=== PATIENT | male | born 1975 | race Caucasian/White ===

== ENCOUNTER 2023-05-19 20:18 | Observation (INO) | payer BC, MEDICAID, SELFPAY ==
[2023-05-19 20:21] VITALS: BP 199/94; PULSE 87; RESP 12; TEMP 36.6; O2SAT 97; BMI 37.8
--- NOTE | 2023-05-19 20:21 | ECG_ITS ---
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 Measurements Intervals [place] Rate: 89 P: 67 VT: 150 QRS: -5 QRSD: 98 T: 52 QT: 337 QTc: 411 Interpretive Statements SINUS RHYTHM No previous ECG available for comparison Electronically Signed On 05-20-2023 11:09:12 CDT by Gwyn Mahajan M.D. [email or web address].[employer]/store/[id number] f
--- NOTE | 2023-05-19 20:22 | XRR_ITS ---
PROCEDURE INFORMATION: Exam: XR Chest Exam date and time: 05/19/2023 8:23 PM Age: 47 years old Clinical indication: Angina pectoris; Patient HX: Chest pain TECHNIQUE: Imaging protocol: Radiologic exam of the chest. Views: 1 view. COMPARISON: l spine FINDINGS: Lungs: No focal consolidation or other acute appearing pulmonary opacity. Pleural spaces: No pleural effusion or pneumothorax noted. Heart/Mediastinum: There is no cardiomegaly. Bones/joints: No acute osseous abnormality. XR/XR chest 1V portable [id number] IMPRESSION: No acute cardiopulmonary disease.
--- NOTE | 2023-05-19 20:23 | ECG_ITS ---
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 Measurements Intervals [place] Rate: 89 P: 67 [place]: 150 QRS: -5 QRSD: 98 T: 52 QT: 337 QTc: 411 Interpretive Statements SINUS RHYTHM No previous ECG available for comparison Electronically Signed On 05-20-2023 11:09:10 CDT by Gwyn Mahajan M.D. [id number] f
--- NOTE | 2023-05-19 20:31 | CTR_ITS ---
PROCEDURE INFORMATION: Exam: CTA Chest With Contrast Exam date and time: 05/19/2023 8:49 PM Age: 47 years old Clinical indication: Other: Hypertensive emergency; Chest pressure; Patient HX: C/O severe chest pain with hypertension; Additional info: Cxp, R/O dissection TECHNIQUE: Imaging protocol: Computed tomographic angiography of the chest with contrast. Exam focused on the arteries. 3D rendering (Not supervised by radiologist): MIP and/or 3D reconstructed images were created by the technologist. Radiation optimization: All CT scans at this facility use at least one of these dose optimization techniques: automated exposure control; mA and/or kV adjustment per patient size (includes targeted exams where dose is matched to clinical indication); or iterative reconstruction. Contrast material: OMNI 350; Contrast volume: 100 ml; Contrast route: INTRAVENOUS (IV); COMPARISON: CR (CHEST, ) 05/19/2023 8:23 PM RADIATION DOSE METRICS: Total DLP (mGy-cm): 1309.29 FINDINGS: Pulmonary arteries: No pulmonary emboli. Aorta: There is no aortic dissection. There is no aortic aneurysm. Lungs: No focal consolidation or other acute appearing pulmonary opacity. Pleural spaces: No pleural effusion or pneumothorax noted. Heart: There is no cardiomegaly. There is no pericardial effusion. Esophagus: The esophageal wall is thickened with a small hiatal hernia. Findings suggestive of reflux disease. Lymph nodes: There are no enlarged nodes. Bones/joints: No acute osseous abnormality. There is degenerative disease of the spine. Soft tissues: Unremarkable. CT/CT angio chest [id number] IMPRESSION: 1. No aortic dissection or aneurysm. 2. No pulmonary emboli. 3. Gastroesophageal reflux disease
--- NOTE | 2023-05-19 20:37 | PM.CONSULT ---
Providers/Reason For Consult Consulting Physician/Specialty*: Gwyn Mahajan MD/ Interventional Cardiology Reason for Consult*: Chest pain Requesting Physician: Dr Doll Attending Physician: Dr Muñiz History of Present Illness History of Present Illness 47-year-old man with no significant prior cardiac history presented to hospital with significant chest pain symptoms. According to patient he started having substernal chest pain with radiation to the left arm. EMS activated STEMI however on review of EKG he does not have ST elevation. Blood pressure was significantly elevated with systolic BP of 200 mmHg. Review of Systems Const: Denies: fever(s) or chills Card: Reports: chest pain Resp: Reports: dyspnea GI: Denies: abdominal pain Medications/Allergies Home Medications Medication Instructions Recorded Confirmed Last Taken Type No Known Home Medications 05/20/23 05/20/23 Unknown History Allergies Allergy/AdvReac Type Severity Reaction Status Date / Time No Known Allergies Allergy Verified 05/19/23 20:30 PFSH Acute PFSH: Medical History History of type 2 diabetes mellitus Surgical History History of hernia surgery Family History Mother Ovarian cancer Father CAD (coronary artery disease) Grandfather CAD (coronary artery disease) Grandmother CAD (coronary artery disease) Vitals/I&O/Wt Last Vital Signs Temp 97.9 F 05/19/23 20:21 Pulse 87 05/19/23 20:21 Resp 12 05/19/23 20:21 BP 199/94 05/19/23 20:21 Pulse Ox 97 05/19/23 20:21 O2 Del Method Room Air 05/19/23 20:21 Weight last 48 hrs Weight 303 lb Physical Exam Narrative: GENERAL: Patient is alert, awake and oriented x3. [] NECK: No jugular vein distension. [] HEENT: No cyanosis. No icterus. No pallor. [] HEART: Regular S1 and S2. Grade 2 systolic murmur LUNGS: Clear to auscultate bilaterally. [] CENTRAL NERVOUS SYSTEM: Grossly nonfocal. [] EXTREMITIES: Lower extremities with 1+ edema bilaterally. Data 05/19/23 20:32 05/19/23 21:20 A&P Assessment and plan (1) Chest pain: (2) Polycythemia: (3) Hypertensive urgency: Plan Patient has typical chest pain. However this is likely secondary to hypertensive urgency. No significant ischemic EKG changes. Trend troponins. Administer aspirin. Antihypertensive regimen. Order echocardiogram. Will recommend stress test if troponins are negative. Thank you for involving us with care of this patient. Will continue to follow. Please call with questions. Consult Attestations Medical Necessity Statement: Care expected to cross 2 midnights. Coding Level of Care Code Acute Code for [facility] Diagnoses Chest pain R07.9 Polycythemia D75.1 Hypertensive urgency I16.0
[2023-05-19 20:41] LABS: Basophils % 0.5 %; Eosinophils # 0.1 10^3/uL (0.0-0.8); Eosinophils % 1.5 %; Hematocrit 56.8 % (37-53); Lymphocytes # 1.9 10^3/uL (0.8-4.8); Lymphocytes % 24.5 %; Mean Corpuscular HGB Conc 33.1 g/dL (30-55); Mean Corpuscular Hemoglobin 29.1 pg (27-33); Mean Corpuscular Volume 88.1 fl (82-101); Mean Platelet Volume 11.1 fL (7.4-10.4); Monocytes # 0.8 10^3/uL (0.2-0.9); Monocytes % 9.8 %; Neutrophils # 4.88 10^3/uL (1.8-7.7); Neutrophils % 63.1 %; Nucleated Red Blood Cells % 0 %; Platelet Count 206 10^3/cmm (157-399); Red Blood Count 6.45 10^6/uL (3.85-5.65); Red Cell Distribution Width 14.4 % (12.1-15.1); White Blood Count 7.75 10^3/uL (3.29-11.43)
[2023-05-19] MEDS: nitroglycerin 1 gm/inch oint Pkt 1 INCH TOPICAL (20:42)
[2023-05-19] MEDS: iohexol 350 mg/mL 500 mL Btl (per mL) IV (20:50)
[2023-05-19 20:54] LABS: INR 1.05 (0.8-1.2)
[2023-05-19 20:55] LABS: Add Urine Microscopic? NO; Charge for UA Resulting for Rev
[2023-05-19 20:55] LABS: Partial Thromboplastin Time 25.7 SECONDS (23.9-36.7)
[2023-05-19 20:58] LABS: Bilirubin Urine Neg (Negative); Blood Urine Neg (Negative); Glucose Urine UA 4+ (Normal); Ketones Urine Negative (Negative); Leukocyte Esterase Urine Negative (Negative); Nitrate Urine Negative (Negative); Protein Urine Neg (Negative); Urine Appearance Clear (CLEAR); Urine Color Yellow (Yellow); Urobilinogen Urine Neg (Negative); pH Urine 7 (5-7)
[2023-05-19 21:00] LABS: Troponin(5th) Baseline 24 ng/L (0-15)
[2023-05-19 21:42] VITALS: BP 141/94; PULSE 84; RESP 18; O2SAT 95
[2023-05-19 21:56] LABS: Alanine Aminotransferase 54 U/L (0-41); Albumin Level 3.9 g/dL (3.5-5.2); Alkaline Phosphatase 58 U/L (40-130); Anion Gap 14.9 (5-19); Aspartate Amino Transferase 24 U/L (0-40); Blood Urea Nitrogen 15 mg/dL (6-20); Calcium 8.7 mg/dL (8.5-10.5); Carbon Dioxide 26 mmol/L (22-29); Chloride 101 mmol/L (98-107); Creatinine Clr Calc Pharmacy 151.6635; Globulin 2.8 g/dL (1.3-4.6); Glomerular Filtration Rate 90.4 mL/min (90-130); Glucose 279 mg/dL (65-115); NT Pro B Type Natriuretic Pept 41 pg/mL (0-125); Osmolality Calculated 297 mOsm/kg (285-295); Potassium 3.9 mmol/L (3.5-5.1); Sodium 138 mmol/L (136-145); Total Bilirubin 0.4 mg/dL (0.15-1.2); Total Protein 6.7 g/dL (6.6-8.7)
[2023-05-19 21:57] LABS: Creatine Phosphokinase 448 U/L (39-308)
--- NOTE | 2023-05-19 22:15 | ECG_ITS ---
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 Measurements Intervals [place] Rate: 87 P: 50 [place]: 145 QRS: 142 QRSD: 94 T: 26 QT: 338 QTc: 408 Interpretive Statements SINUS RHYTHM INDETERMINATE AXIS POSSIBLE ANTERIOR MYOCARDIAL INFARCTION , OF INDETERMINATE AGE [30 ms Q WAVE IN V3/V4, OR R < 0.2 mV IN V4] Compared to ECG 05/19/2023 20:21:50 Indeterminate axis now present Myocardial infarct finding now present Electronically Signed On 05-20-2023 11:17:31 CDT by Gwyn Mahajan M.D. [id number]
[2023-05-19 23:10] LABS: Troponin 5 2HR 23.26 ng/L (0-15)
[2023-05-19 23:11] LABS: Troponin 5 2HR Delta -0.74 ABS# (0-10)
[2023-05-19] MEDS: lidocaine 2% viscous 15 ML, aluminum-mag hydrox-simethicon 30 ML, sucralfate oral liq 1 GM PO (23:12)
--- NOTE | 2023-05-19 23:41 | W.ED.CHESTPA ---
HPI - Chest Pain General: Chief Complaint: Chest Pain Stated Complaint: CHEST PAIN Time Seen by Provider: 05/19/23 20:23 History of Present Illness: 47-year-old male presents to the emergency department via EMS personnel secondary to sudden onset substernal chest pain that radiated to his left shoulder. The patient states that he did feel like he had shortness of breath at the time of the onset of chest pain. Patient states that he does have a history of GERD and diabetes. He states he takes no medication as he is lost approximately 80 pounds. EMS personnel state that the patient had a significantly elevated blood pressure of over 200 systolic and called the ER and alerted for a STEMI. EMS personnel state they did give the patient cardiac dose aspirin as well as 2 sublingual nitro as which did not relieve his pain. The patient states that he continues to have sharp stabbing chest pain that is worse when he takes a deep breath. He states the pain is currently a 6 out of 10. He states he does have a headache that started after he was provided nitroglycerin in the ambulance. Patient states that in the past he has had elevated blood pressure but felt that since he lost a significant amount of weight that his blood pressure is under control although he states he does not check his blood pressure. 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 Associated symptoms: Reports dyspnea Review of Systems General: Reports: 10 or more systems reviewed and unremarkable except in HPI and below Card: Reports: chest pain Resp: Reports: dyspnea Physical Exam Narrative: EXAM NARRATIVE: Constitutional: the patient appears well nourished and with normal development. Vital signs reviewed as documented. Anxious appearing, no acute distress, HENMT: Normocephalic, atraumatic. External ears normal appearance without drainage. Nose without drainage, normal appearance. Mucus membranes moist. Neck is supple, No jugular venous distension, trachea is midline, no appreciable carotid bruits. No lymphadenopathy. No meningeal signs. Flexion, extension and lateral rotation is without pain. Eyes: Pupils are equal, round, reactive to light and accommodation. No scleral icterus. Extra-ocular movement are intact. Thorax is symmetrical and with equal rise and fall with respirations. Resp: Lungs are clear to auscultation. No wheezes, rales, crackles or ronchi at present. Cardio: Regular rate and rhythm. Positive S1, S2. No appreciable murmurs, rubs or gallops. GI: Abdominal exam reveals normal bowel sounds to all quadrants. No organomegaly. No obvious palpable masses noted. No hepatomegally appreciated. Soft, non-tender to palpation. Extremity: Extremities are non-edematous and both femoral and pedal pulses are 2+ and equal bilaterally. Moves all extremities well, sensation in all extremities. Neuro: Alert and oriented x4, person, place, time and situation. Cranial nerves II through XII are grossly intact, there is no focal neurological deficits that I can appreciate at present. Motor strength in the upper and lower extremities are equal and bilateral 5/5. Psych: Cooperative, normal thought process, appropriate judgment. Skin: No lesions, rashes. No gross abnormalities noted. Chronic venous stasis changes noted to the bilateral lower extremities. Back: Symmetrical, no obvious deformity, No CVA tenderness Course Vital Signs: Vital signs: Vital Signs Temperature 97.9 F 05/19/23 20:21 Pulse Rate 84 05/19/23 21:42 Respiratory Rate 18 05/19/23 21:42 Blood Pressure 141/94 05/19/23 21:42 Pulse Oximetry 95 05/19/23 21:42 Oxygen Delivery Me thod Room Air 05/19/23 20:21 MDM - Chest Pain Medical Decision Making Physical exam completed and documented a STEMI alert was initiated prior to arrival of the patient via [facility]. Review of the initial cardiac tracings from EMS did not demonstrate ST elevation or depression. Repeat twelve-lead EKG upon arrival here to the emergency department did not demonstrate ST elevation or depression. The patient was noted to have significantly elevated blood pressure and was provided antihypertensive medications. The on-call sports fitness and wellness director did evaluate the patient. The patient's blood pressure continued to improve after receiving hydralazine. CTA chest to evaluate for aortic dissection which was negative with the exception of findings consistent of GERD. I did contact the hospitalist physician for admission for additional evaluation treatment and care. Differential diagnosis includes atypical chest pain, NSTEMI, esophageal reflux, esophageal spasm, anxiety, pneumonia, aortic dissection, uncontrolled hypertension, Medical Records I reviewed the patient's medical records. Lab Data I reviewed the patient's lab results. 05/19/23 20:32 05/19/23 21:20 Radiology Impressions Chest X-Ray 05/19/23 20:22 IMPRESSION: No acute cardiopulmonary disease. Chest CTA 05/19/23 20:31 IMPRESSION: 1. No aortic dissection or aneurysm. 2. No pulmonary emboli. 3. Gastroesophageal reflux disease Laboratory Results WBC 7.75 10^3/uL (3.29-11.43) 05/19/23 20:32 RBC 6.45 10^6/uL (3.85-5.65) H 05/19/23 20:32 Hgb 18.80 g/dL (11.27-16.99) H 05/19/23 20:32 Hct 56.8 % (37-53) H 05/19/23 20:32 MCV 88.1 fl (82-101) 05/19/23 20:32 MCH 29.1 pg (27-33) 05/19/23 20:32 MCHC 33.1 g/dL (30-55) 05/19/23 20:32 RDW 14.4 % (12.1-15.1) 05/19/23 20:32 Plt Count 206 10^3/cmm (157-399) 05/19/23 20:32 MPV 11.1 fL (7.4-10.4) H 05/19/23 20:32 Neut % (Auto) 63.1 % 05/19/23 20:32 Lymph % (Auto) 24.5 % 05/19/23 20:32 [place] % (Auto) 9.8 % 05/19/23 20:32 Eos % (Auto) 1.5 % 05/19/23 20:32 Baso % (Auto) 0.5 % 05/19/23 20:32 Neut # (Auto) 4.88 10^3/uL (1.8-7.7) 05/19/23 20:32 Lymph # (Auto) 1.9 10^3/uL (0.8-4.8) 05/19/23 20:32 [place] # (Auto) 0.8 10^3/uL (0.2-0.9) 05/19/23 20:32 Eos # (Auto) 0.1 10^3/uL (0.0-0.8) 05/19/23 20:32 Baso # (Auto) 0.0 10^3/uL (0.0-0.1) 05/19/23 20:32 Nucleated RBC % (auto) 0 % 05/19/23 20:32 Nucleated RBCs # 0.0 /100WBC 05/19/23 20:32 PT 14.00 SECONDS (12.1-14.9) 05/19/23 20:32 INR 1.05 (0.8-1.2) 05/19/23 20:32 APTT 25.7 SECONDS (23.9-36.7) 05/19/23 20:32 Sodium 138 mmol/L (136-145) 05/19/23 21:20 Potassium 3.9 mmol/L (3.5-5.1) 05/19/23 21:20 Chloride 101 mmol/L (98-107) 05/19/23 21:20 Carbon Dioxide 26 mmol/L (22-29) 05/19/23 21:20 Anion Gap 14.9 (5-19) 05/19/23 21:20 BUN 15 mg/dL (6-20) 05/19/23 21:20 Creatinine 0.9 mg/dL (0.7-1.2) 05/19/23 21:20 GFR Calculation 90.4 mL/min (90-130) 05/19/23 21:20 Glucose 279 mg/dL (65-115) H 05/19/23 21:20 Calculated Osmolality 297 mOsm/kg (285-295) H 05/19/23 21:20 Calcium 8.7 mg/dL (8.5-10.5) 05/19/23 21:20 Total Bilirubin 0.4 mg/dL (0.15-1.2) 05/19/23 21:20 AST 24 U/L (0-40) 05/19/23 21:20 ALT 54 U/L (0-41) H 05/19/23 21:20 Alkaline Phosphatase 58 U/L (40-130) 05/19/23 21:20 Creatine Kinase 448 U/L (39-308) H* 05/19/23 21:20 Troponin T Baseline 24 ng/L (0-15) H 05/19/23 20:32 Troponin T 120 Minute 23.26 ng/L (0-15) H 05/19/23 22:32 Delta Troponin T -0.74 ABS# (0-10) L 05/19/23 22:32 NT-Pro-B Natriuret Pep 41 pg/mL (0-125) 05/19/23 21:20 Total Protein 6.7 g/dL (6.6-8.7) 05/19/23 21:20 Albumin 3.9 g/dL (3.5-5.2) 05/19/23 21:20 Globulin 2.8 g/dL (1.3-4.6) 05/19/23 21:20 Urine Color Yellow (Yellow) 05/19/23 20:45 Urine Appearance Clear (CLEAR) 05/19/23 20:45 Urine pH 7 (5-7) 05/19/23 20:45 Ur Specific [place] 1.010 (1.005-1.030) 05/19/23 20:45 Urine Protein Neg (Negative) 05/19/23 20:45 Urine Glucose (UA) 4+ (Normal) H 05/19/23 20:45 Urine Ketones Negative (Negative) 05/19/23 20:45 Urine Blood Neg (Negative) 05/19/23 20:45 Urine Nitrate Negative (Negative) 05/19/23 20:45 Urine Bilirubin Neg (Negative) 05/19/23 20:45 Urine Urobilinogen Neg mg/dL (Negative) 05/19/23 20:45 Ur Leukocyte Esterase Negative (Negative) 05/19/23 20:45 All radiology interpretation(s) finalized by discharge EKG Data EKG 1: Interpretation: Twelve-lead EKG obtained at 2020 and reviewed at 2020 demonstrates sinus rhythm with a ventricular rate of 89 bpm, NV interval 150, QRS duration 98, QT 337, QTc 383, there is no ST elevation or depression to demonstrate acute ischemia or infarction at present. EKG 2: Interpretation: Twelve-lead EKG obtained at 2214 and reviewed at 2216 demonstrates sinus rhythm, ventricular rate 87, NV interval 145, QRS duration 94 QT 338, QTc [address] elevation or depression at present to demonstrate acute ischemia or infarction. 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
[2023-05-20] VITALS (9 sets, daily range): BP systolic 135–153; BP diastolic 65–78; PULSE 68–84; RESP 17–24; TEMP 36.5–36.7; O2SAT 92–97
--- NOTE | 2023-05-20 00:38 | USCV_ITS ---
Kd Vilchis Age: 47 Gender: M : 1975 Exam Date: 05/20/2023 07:06 Ordering Phys: Bud Muñiz MD Technologist: Kervin Nazario Exam Location: [facility] Indication: chest pain BP: 145 / 68 HR: 67 Rhythm: Sinus Technical Quality: Adequate MEASUREMENTS (Male / Female) Normal Values 2D ECHO LVOT Diameter 2.1 cm LV Ejection Fraction MOD 2C 63.9 % LV Ejection Fraction 2C AL 63.1 % LA Diameter 3.4 cm RA Systolic Volume 4C AL 55.7 ml RA Systolic Volume 4C MOD 55.7 ml Aorta at Sinotubular Diameter 2.8 cm IVC Diameter 2.6 cm M-MODE LA Ao Ratio MM 1.3 MV E Point Septal Separation 0.7 cm AV Cusp Separation MM 2.0 cm DOPPLER AV Peak Velocity 193.0 cm/s LVOT Peak Velocity 120.0 cm/s AV Area Cont Eq vti 2.0 cm squared AV Area Cont Eq pk 2.3 cm squared MV Peak Velocity 116.0 cm/s MV Area PHT 5.3 cm squared Mitral E to A Ratio 1.2 TV Peak Velocity 132.5 cm/s TR Peak Velocity 157.0 cm/s TR Peak Gradient 9.9 mmHg TR Mean Velocity 113.0 cm/s TR Mean Gradient 5.8 mmHg TR Velocity Time Integral 33.1 cm PV Peak Velocity 91.0 cm/s RV Ejection Time 0.2 s FINDINGS Left Ventricle Left ventricle is normal in size. LV systolic function is normal with EF of 55-60%. No regional wall motion abnormalities are seen. Left ventricular hypertrophy seen. Right Ventricle Normal in size and function Right Atrium Normal in size Left Atrium Normal in size Mitral Valve Structurally normal mitral valve. Mild mitral regurgitation. Aortic Valve Aortic valve is thickened. Mild aortic stenosis with aortic valve area 1.99 cm2 and mean gradient of 9 mmHg. Tricuspid Valve Insufficient TR jet to calculate RVSP. Pulmonic Valve Not well visualized Pericardium Normal Aorta Normal in size IVC Appears to be dilated CONCLUSIONS LV systolic function is normal with EF 55 to 60%. Left ventricular hypertrophy seen. Mild mitral regurgitation. Mild aortic stenosis. IVC appears to be dilated No comparison studies are available. Gwyn Mahajan MD (Electronically Signed) Final Date: 20 May 2023 09:26 S
--- NOTE | 2023-05-20 00:42 | P.HP_ITS ---
Providers/Chief Complaint 2 Chief Complaint: CHEST PAIN History of Present Illness Kd Vilchis is a 47 year old male with a past medical history of obesity, GERD, history of type 2 diabetes mellitus, now diet controlled, who was lost about 100 pounds due to diet control, extensive family history of CAD, presents to [facility] due to chest pain. 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 EMS checked his blood pressure, and it was systolics were in the 200s, he does not remember the lower number, they had done an EKG, concern for STEMI, patient was given a cardiac dose of aspirin, 2 nitro, brought into the emergency room, pain was 6 out of 10, currently 2 out of 10, EKGs [facility] at [facility] did not show any acute ST-T wave changes, patient came in as a STEMI alert, cardiology was consulted, EKGs were reviewed no acute ST-T wave changes, troponin was reviewed, no acute indication for urgent cardiac catheterization, currently patient alert oriented x 4, following all commands, sitting up in side of bed, chest pain 2 out of 10, some Nitropatch on blood pressure 160s over 90s, he feels significantly better, 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 report a 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, 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, 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 does report extensive history of CAD in his grandmother and grandfather and his father Review of Systems 2 Const: Denies: fever(s) or chills Card: Reports: chest pain Resp: Reports: dyspnea GI: Denies: abdominal pain Medications/Allergies Allergies Allergy/AdvReac Type Severity Reaction Status Date / Time No Known Allergies Allergy Verified 05/19/23 20:30 PFSH Acute 2 PFSH: Medical History (Updated 05/20/23 @ 00:47 by Bud Muñiz MD) History of type 2 diabetes mellitus Surgical History (Updated 05/20/23 @ 00:45 by Bud Muñiz MD) History of hernia surgery Family History (Updated 05/20/23 @ 00:46 by Bud Muñiz MD) Mother Ovarian cancer Father CAD (coronary artery disease) Grandfather CAD (coronary artery disease) Grandmother CAD (coronary artery disease) Vitals/I&O/Wt Last Vital Signs Temp 97.9 F 05/19/23 20:21 Pulse 84 05/19/23 21:42 Resp 18 05/19/23 21:42 BP 141/94 05/19/23 21:42 Pulse Ox 95 05/19/23 21:42 O2 Del Method Room Air 05/19/23 20:21 Weight last 48 hrs Weight 137.438 kg Physical Exam 2 Const: COMMON NORMALS: no acute distress and patient oriented x3 HENMT: COMMON NORMALS: normocephalic HEAD & SCALP: normocephalic Eye: COMMON NORMALS: Equal, round and reactive pupils present Neck/C-Spine: COMMON NORMALS: no JVD Lymph: LYMPHATIC: no lymphadenopathy noted Resp: COMMON NORMALS: normal respiratory effort, No retractions, No use of accessory muscles and clear to auscultation bilaterally AUSCULTATION: clear to auscultation bilaterally Cardio: COMMON NORMALS: no JVD, regular rate, regular rhythm, S1 normal heart sound present and S2 normal heart sound present RATE: regular rate RHYTHM: regular rhythm HEART SOUNDS: S1 normal heart sound present and S2 normal heart sound present GI: COMMON NORMALS: Normal to inspection, nondistended, normoactive bowel sounds present, Soft to palpation and non-tender Extremity: COMMON NORMALS: no calf tenderness and no pedal edema Neuro: COMMON NORMALS: patient oriented x3, CN's II-XII intact bilaterally and moves all extremities Psych: COMMON NORMALS: mental status grossly normal Data 05/19/23 20:32 05/19/23 21:20 A&P Assessment and plan (1) Chest pain: (2) Polycythemia: (3) Hypertensive urgency: Plan Chest pain -Symptomatology does sound cardiac in nature, concerning due to nature of radiation associated diaphoresis, sudden onset -He does have extensive family history of CAD - does have risk factors of diabetes, obesity, hyperlipidemia Hypertensive urgency Plan -Aspirin, statin, metoprolol -Cardiac echo -Nitro as needed for chest pain -Monitor closely -Would strongly consider inpatient admission, for cardiac stress testing on Sunday -Full code -Lovenox for DVT prophylaxis Hypertensive urgency, start metoprolol 12.5 twice daily, lisinopril 10 mg daily Polycythemia, likely secondary to obstructive sleep apnea, UA no significant blood, father does have a history of blood clots, monitor Elevated CPK, monitor Obesity, patient's on diet control, Type 2 diabetes mellitus, diet controlled, check A1c Attestations 2 Medical Necessity Statement*: Patient requires hospitalization, inpatient, greater than 2 midnights, for hypertensive urgency, chest pain, Diagnoses Chest pain R07.9 Polycythemia D75.1 Hypertensive urgency I16.0
[2023-05-20] MEDS: aspirin 81 mg EC Tablet PO ×2 (01:01→09:16)
[2023-05-20] MEDS: enoxaparin 40 mg/0.4 mL Syringe SUBCUT (01:02)
[2023-05-20] MEDS: pantoprazole 40 mg SDV IVP (01:03)
[2023-05-20 01:07] LABS: Estmated Average Glucose 163; Hemoglobin A1C 7.3 % (4.0-6.0)
[2023-05-20 01:23] LABS: Chol HDL Ratio 5.94 mg/dL (1.0-5.00); Cholesterol 214 mg/dL (0-200); HDL Cholesterol 36 mg/dL (60-100); LDL Cholesterol Calculated 149 mg/dL (50-129); LDL HDL Ratio 4.14 RATIO (0.00-3.22); NT Pro B Type Natriuretic Pept 42 pg/mL (0-125); Thyroid Stimulating Hormone 2.46 uIU/mL (0.27-4.20); Triglycerides 145 mg/dL (0-150)
[2023-05-20] MEDS: metoprolol tartrate 25 mg Tablet 12.5 MG PO ×2 (02:13→12:48)
--- NOTE | 2023-05-20 02:20 | ECG_ITS ---
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 Measurements Intervals [place] Rate: 75 P: 15 [place]: 160 QRS: -12 QRSD: 97 T: 7 QT: 355 QTc: 399 Interpretive Statements SINUS RHYTHM WITH SINUS ARRHYTHMIA POSSIBLE ANTERIOR MYOCARDIAL INFARCTION , OF INDETERMINATE AGE [30 ms Q WAVE IN V3/V4, OR R < 0.2 mV IN V4] Compared to ECG 05/20/2023 01:25:15 Incomplete right bundle-branch block no longer present Myocardial infarct finding still present Electronically Signed On 05-20-2023 11:16:55 CDT by Gwyn Mahajan M.D. [id number]
--- NOTE | 2023-05-20 02:23 | ECG_ITS ---
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 Measurements Intervals [place] Rate: 83 P: 25 UT: 144 QRS: -24 QRSD: 94 T: 33 QT: 343 QTc: 405 Interpretive Statements SINUS RHYTHM INCOMPLETE RIGHT BUNDLE BRANCH BLOCK [90+ ms QRS DURATION, TERMINAL R IN V1/V2, 40+ ms S IN I/aVL/V4/V5/V6] POSSIBLE ANTERIOR MYOCARDIAL INFARCTION , OF INDETERMINATE AGE [30 ms Q WAVE IN V3/V4, OR R < 0.2 mV IN V4] Compared to ECG 05/19/2023 22:15:38 Incomplete right bundle-branch block now present Indeterminate axis no longer present Myocardial infarct finding still present Electronically Signed On 05-20-2023 11:17:02 CDT by Gwyn Mahajan M.D. [email or web address]
[2023-05-20 04:06] LABS: Troponin 5 6HR 23.83 ng/L (0-15)
[2023-05-20 04:07] LABS: Troponin 5 6HR Delta -0.17 ng/L (0-12)
[2023-05-20] MEDS: lisinopril 10 mg Tablet PO ×2 (06:05→09:37)
--- NOTE | 2023-05-20 10:45 | PM.PN ---
Subjective Subjective: Patient is doing well. No chest pain. Vitals/I&O/Wt Last Vital Signs Temp 98.1 F 05/20/23 07:50 Pulse 68 05/20/23 07:50 Resp 17 05/20/23 07:50 BP 135/70 05/20/23 07:50 Pulse Ox 93 05/20/23 07:50 O2 Del Method Room Air 05/20/23 07:50 05/19/23 05/20/23 05/20/23 22:59 06:59 14:59 Intake Total 320 / 320 240 / 240 Balance 320 / 320 240 / 240 Weight last 48 hrs Weight 311 lb 4.8 oz Weight 291 lb Weight 303 lb Physical Exam Narrative: GENERAL: Patient is alert, awake and oriented x3. [] NECK: No jugular vein distension. [] HEENT: No cyanosis. No icterus. No pallor. [] HEART: Regular S1 and S2. Grade 2 systolic murmur LUNGS: Clear to auscultate bilaterally. [] CENTRAL NERVOUS SYSTEM: Grossly nonfocal. [] EXTREMITIES: Lower extremities with 1+ edema bilaterally. Data 05/19/23 20:32 05/19/23 21:20 A&P Assessment and plan (1) Chest pain: (2) Polycythemia: (3) Hypertensive urgency: Plan Patient is chest pain-free. No significant ischemic EKG changes. He wants to have a stress test performed as outpatient. Thank you for involving us with care of this patient. Please call with questions. Attestations Medical Necessity Statement*: Care expected to cross 2 midnights. Coding Level of Care Code Acute Code for [facility] Diagnoses Chest pain R07.9 Polycythemia D75.1 Hypertensive urgency I16.0
[2023-05-20 12:18] LABS: D Dimer <= 0.27 ug/mLFEU (0-0.59)
[2023-05-20] MEDS: atorvastatin 40 mg Tablet PO (13:00)
--- NOTE | 2023-05-20 15:20 | P.DS_ITS ---
Discharge Providers Date of Admission: 05/20/23 00:40 Date of Discharge: May 20, 2023 Attending Provider at Admission: Bud Muñiz MD Attending Provider at Discharge: Libby Raymond MD Diagnoses at Discharge Discharge Diagnosis (1) Chest pain: Status: Acute (2) Polycythemia: Status: Acute (3) Hypertensive urgency: Status: Acute Reason for Visit Reason for Visit: CHEST PAIN Brief History: Kd Vilchis is a 47 year old male with a past medical history of obesity, GERD, history of type 2 diabetes mellitus, on lifestyle modification for all these, who was lost about 100 pounds due to diet control, extensive family history of CAD, presented to [facility] due to chest pain. Patient also has a history of needing testosterone replacement, dose of testosterone was recently increased 6 months ago. Recommended to undergo phlebotomy every 6 months, however patient has been unable to do this for the last 2 years. Hemoglobin currently at 18.8. He presented to the hospital with chest pain radiating into his neck and jaw. Describes it as a tight squeezing sensation. Initially EMS called a STEMI code, however upon arrival here he was reviewed by cardiology, patient did not have any significant acute ST-T wave changes on EKG. Troponin series showed trend of 24--> 23--> 23 without significant delta. He was noted to be hypertensive with systolic blood pressure of 222 mmHg initially upon arrival. With controlling blood pressure his chest pain subsided. He was evaluated by cardiology and recommended to undergo a cardiac stress test to further evaluate his symptoms which could be concerning for angina. However patient stated that he would like to be discharged and complete the stress test as an outpatient. He does not have a primary care provider currently; he requested referral to a local provider in [place] which is closest to his home. Referral was provided in accordance with his wishes. He was noted to have uncontrolled diabetes with HbA1c at 7.3. He states that previously his A1c was up to 13 and he was able to bring down quite significantly with weight loss and lifestyle modification. He had been offered to be started on metformin previously, however had declined. Wishes to continue lifestyle modifications with this. Also noted to have elevated LDL at 149, low HDL at 36; started on atorvastatin 40 mg p.o. daily. He was also started on lisinopril 10 mg daily for hypertension. Currently blood pressure is 150/78 at the time of discharge, having received greater than 20% reduction acutely. Recommended to keep a blood pressure and heart rate charted at home by checking these numbers twice a day at the same time. Take ulysses sewell for review to PCP. Patient states that he will be following up in [place] for his stress test, does not wishes to schedule one over here at this time. he is discharged in stable chest pain free condition. Physical Exam Narrative: General: No acute distress, AO x3 HEENT: PERRLA, pupils bilaterally equal and reactive, pallors not present Chest: Normal vesicular breath sounds, no added sounds, equal good air entry bilaterally CVS: S1-S2 regular, no murmurs, no tachycardia, no gallops, no rubs Abdomen: Soft, nontender, no organomegaly, bowel sounds present Neuro: No focal deficits, no facial deformity, AO x3, power 5/5 in all limbs Extremities: no edema, clubbing or cyanosis Discharge Data Studies Completed and Pending Completed Studies During Hospitalization Category Date Time Status CTA chest [CT angio chest [id number]] Stat Cat Scan 05/19/23 20:31 Completed XR chest 1V portable [id number] Stat Exams 05/19/23 20:22 Completed CV. echo complete* [id number] Stat Ultrasound 05/20/23 00:38 Completed Radiology Impressions Chest X-Ray 05/19/23 20:22 IMPRESSION: No acute cardiopulmonary disease. Chest CTA 05/19/23 20:31 IMPRESSION: 1. No aortic dissection or aneurysm. 2. No pulmonary emboli. 3. Gastroesophageal reflux disease Laboratory Results WBC 7.75 10^3/uL (3.29-11.43) 05/19/23 20:32 RBC 6.45 10^6/uL (3.85-5.65) H 05/19/23 20:32 Hgb 18.80 g/dL (11.27-16.99) H 05/19/23 20:32 Hct 56.8 % (37-53) H 05/19/23 20:32 MCV 88.1 fl (82-101) 05/19/23 20:32 MCH 29.1 pg (27-33) 05/19/23 20:32 MCHC 33.1 g/dL (30-55) 05/19/23 20:32 RDW 14.4 % (12.1-15.1) 05/19/23 20:32 Plt Count 206 10^3/cmm (157-399) 05/19/23 20:32 MPV 11.1 fL (7.4-10.4) H 05/19/23 20:32 Neut % (Auto) 63.1 % 05/19/23 20:32 Lymph % (Auto) 24.5 % 05/19/23 20:32 [place] % (Auto) 9.8 % 05/19/23 20:32 Eos % (Auto) 1.5 % 05/19/23 20:32 Baso % (Auto) 0.5 % 05/19/23 20:32 Neut # (Auto) 4.88 10^3/uL (1.8-7.7) 05/19/23 20:32 Lymph # (Auto) 1.9 10^3/uL (0.8-4.8) 05/19/23 20:32 [place] # (Auto) 0.8 10^3/uL (0.2-0.9) 05/19/23 20:32 Eos # (Auto) 0.1 10^3/uL (0.0-0.8) 05/19/23 20:32 Baso # (Auto) 0.0 10^3/uL (0.0-0.1) 05/19/23 20:32 Nucleated RBC % (auto) 0 % 05/19/23 20: Nucleated RBCs # 0.0 /100WBC 05/19/23 20:32 PT 14.00 SECONDS (12.1-14.9) 05/19/23 20:32 INR 1.05 (0.8-1.2) 05/19/23 20:32 APTT 25.7 SECONDS (23.9-36.7) 05/19/23 20:32 D-Dimer <= 0.27 ug/mLFEU (0-0.59) 05/20/23 11:59 Sodium 138 mmol/L (136-145) 05/19/23 21:20 Potassium 3.9 mmol/L (3.5-5.1) 05/19/23 21:20 Chloride 101 mmol/L (98-107) 05/19/23 21:20 Carbon Dioxide 26 mmol/L (22-29) 05/19/23 21:20 Anion Gap 14.9 (5-19) 05/19/23 21:20 BUN 15 mg/dL (6-20) 05/19/23 21:20 Creatinine 0.9 mg/dL (0.7-1.2) 05/19/23 21:20 GFR Calculation 90.4 mL/min (90-130) 05/19/23 21:20 Glucose 279 mg/dL (65-115) H 05/19/23 21:20 Estimat Average Glucose 163 05/20/23 00:00 Hemoglobin A1c 7.3 % (4.0-6.0) H 05/20/23 00:00 Calculated Osmolality 297 mOsm/kg (285-295) H 05/19/23 21:20 Calcium 8.7 mg/dL (8.5-10.5) 05/19/23 21:20 Total Bilirubin 0.4 mg/dL (0.15-1.2) 05/19/23 21:20 AST 24 U/L (0-40) 05/19/23 21:20 ALT 54 U/L (0-41) H 05/19/23 21:20 Alkaline Phosphatase 58 U/L (40-130) 05/19/23 21:20 Creatine Kinase 448 U/L (39-308) H* 05/19/23 21:20 Troponin T Baseline 24 ng/L (0-15) H 05/19/23 20:32 Troponin T 120 Minute 23.26 ng/L (0-15) H 05/19/23 22:32 Delta Troponin T -0.74 ABS# (0-10) L 05/19/23 22:32 Troponin T Hi Sens 6Hr 23.83 ng/L (0-15) H 05/20/23 02:40 Troponin T Hi Sens 6Hr Delta -0.17 ng/L (0-12) L 05/20/23 02:40 NT-Pro-B Natriuret Pep 42 pg/mL (0-125) 05/20/23 00:00 Total Protein 6.7 g/dL (6.6-8.7) 05/19/23 21:20 Albumin 3.9 g/dL (3.5-5.2) 05/19/23 21:20 Globulin 2.8 g/dL (1.3-4.6) 05/19/23 21:20 Triglycerides 145 mg/dL (0-150) 05/20/23 00:00 Cholesterol 214 mg/dL (0-200) H 05/20/23 00:00 LDL Cholesterol, Calc 149 mg/dL (50-129) H 05/20/23 00:00 HDL Cholesterol 36 mg/dL (60-100) L 05/20/23 00:00 LDL/HDL Ratio 4.14 RATIO (0.00-3.22) H 05/20/23 00:00 Cholesterol/HDL Ratio 5.94 mg/dL (1.0-5.00) H 05/20/23 00:00 TSH 2.46 uIU/mL (0.27-4.20) 05/20/23 00:00 Urine Color Yellow (Yellow) 05/19/23 20:45 Urine Appearance Clear (CLEAR) 05/19/23 20:45 Urine pH 7 (5-7) 05/19/23 20:45 Ur Specific [place] 1.010 (1.005-1.030) 05/19/23 20:45 Urine Protein Neg (Negative) 05/19/23 20:45 Urine Glucose (UA) 4+ (Normal) H 05/19/23 20:45 Urine Ketones Negative (Negative) 05/19/23 20:45 Urine Blood Neg (Negative) 05/19/23 20:45 Urine Nitrate Negative (Negative) 05/19/23 20:45 Urine Bilirubin Neg (Negative) 05/19/23 20:45 Urine Urobilinogen Neg mg/dL (Negative) 05/19/23 20:45 Ur Leukocyte Esterase Negative (Negative) 05/19/23 20:45 Vitals Last Vital Signs Temp 97.9 F 05/20/23 12:43 Pulse 82 05/20/23 12:43 Resp 21 H 05/20/23 12:43 BP 152/78 05/20/23 12:43 Pulse Ox 96 05/20/23 12:43 O2 Del Method Room Air 05/20/23 10:56 Discharge Plan Discharge Patient Disposition: Home Condition: Stable Prescriptions: New atorvastatin 40 mg Tablet 40 mg PO BEDTIME 30 Days Qty: 30 0RF aspirin 81 mg Tablet,Delayed Release (Dr/Ec) 81 mg PO DAILY 30 Days Qty: 30 0RF lisinopril 10 mg Tablet 10 mg PO DAILY 30 Days Qty: 30 0RF Protonix 40 mg tablet,delayed release (DR/EC) 40 mg PO DAILY 28 Days Qty: 30 0RF Discharge Orders: Discharge Order (Routine); Ordered 05/20/23 Ordered By: Libby Raymond Other Ambulatory Orders: Cardiac Stress Test Request (Routine) Timeframe: 1 Week Facility: [facility] - Location: Cardiac Diagnostic Laboratory Ordered By: Libby Raymond Referrals: Fito Puente Dr. [Other] - 4-7 days (Please call for an follow-up appointment within 4 to 7 days. Thank you! Also, [facility] will contact you to schedule an Out-patient cardiac stress. If you haven't heard from them by Sunday. Pleaae call ) Fito Puente MD [Hospitalist] - 4-7 days (Hospital d/c follow up for hypertensive urgency, chest pain, recommended stress test ) Discharge Diet: Cardiac, Diabetic, Low Salt, Low Cholesterol and Low Fat Discharge Activity: Resume usual activity Patient Instructions: Lisinopril (By mouth), Aspirin (By mouth), Atorvastatin (By mouth) (Lipitor, Atorvaliq), Pantoprazole (By mouth) (Protonix), Chest Pain (DC), GERD (Gastroesophageal Reflux Disease) (DC), Hypertensive Crisis (DC), Return to Work Instructions (DC), Chest Pain Stoplight, Opioid Safety Plan of Treatment: Dr. Fito Puente [address] [address] [address] Fito Puente [address] [place], [place] [address] Discharge Attestations Time Spent in Discharge Care*: greater than 30 min Quality Metrics Clinical Quality Measures [ No reported AMI, CVA or VTE this stay] Coding Level of Care Code Acute Code for [facility] Diagnoses Chest pain R07.9 Polycythemia D75.1 Hypertensive urgency I16.0
== END 2023-05-20 13:30 | disposition home or self-care (01) ==
LOC: ER 05-20 00:07 → CSU 05-20 01:01
PROVIDERS: Emergency Medicine; Admitting Provider Family Medicine; Emergency Provider Internal Medicine; Visit Provider Student in an Organized Health Care Education/Training Program
DX: R07.9 Chest pain, unspecified (principal); D75.1 Secondary polycythemia; I16.0 Hypertensive urgency; E66.9 Obesity, unspecified; Z68.38 Body mass index [BMI] 38.0-38.9, adult; E11.9 Type 2 diabetes mellitus without complications; I45.10 Unspecified right bundle-branch block; Z82.49 Family history of ischemic heart disease and other diseases of the circulatory system
CPT/HCPCS: 36415; 71045; 71275; 80053; 80061; 81003; 82550; 83036; 83880; 84443; 84484; 85025; 85378; 85610; 85730; 93005; 93306; 96372; 96374; 99285; C9113; G0378; J1650; Q9967